=== PATIENT | female | born 1980 | race African-American/Black ===

== ENCOUNTER 2017-03-03 01:59 | Emergency (ER) | payer OTHER ==
--- NOTE | ~2017-03-03 | CT71 ---
[facility] A Service of [facility] RADIOLOGY TEXT RESULTS PATIENT: ABRAHAN GLOVER LOCATION: JOSE : [birth year] UNIT #: [id number] AGE: [address]: Demario Rodriguez MD SEX: F ORDER DR: [id number] [facility] [address] [place], [place] [address] [id number] E MR#: [id number] Acc #: [id number] NAME: ABRAHAN GLOVER : 1980 SEX: F STUDY DATE/TIME: 03/03/2017 1:59 UNIT: JOSE ROOM: STUDY DESCRIPTION: CT Head Wo Contrast Attending Physician: Demario Rodriguez M.D. Ordering Physician: Demario Rodriguez M.D. Primary Care Physician: No Primary Care Physician MEDICAL IMAGING REPORT This report is preliminary unless electronic signature is present EXAM Noncontrast head CT. HISTORY Left side of head hurts, nausea; onset today. TECHNIQUE This CT exam was performed with one or more of the following radiation dose reduction techniques: automatic exposure control, adjustment of mA and/or kV according to patient size, and iterative reconstruction. FINDINGS Axial noncontrast imaging of the brain demonstrates the brain parenchyma to be normal. No mass, mass effect or midline shift. No hemorrhage or abnormal extraaxial fluid collections. Ventricles, sulci and basilar cisterns appear normal. The bony calvaria, skull base, mastoids, sinuses unremarkable. IMPRESSION Negative noncontrast head CT. Dictated by... Wendy Castro M.D. THIS IS AN ELECTRONICALLY VERIFIED REPORT Wendy Castro M.D. at 03/03/2017 10:04 PM EL/devora TD: 03/03/2017 11:49 JOB #: [id number] [facility] A Service [facility] RADIOLOGY TEXT RESULTS PATIENT: ABRAHAN GLOVER LOCATION: JOSE : [birth year] UNIT #: [id number] AGE: [address]: Demario Rodriguez MD SEX: F ORDER DR: MEDICAL IMAGING REPORT Page 1 of 1 COPY
[2017-03-03 02:09] LABS: BASOPHIL# 0.1 X10e3 (0-0.3); DIFF IND NO; EOSINOPHIL# 0.2 X10e3 (0-0.7); EOSINOPHIL% 1.7 % (0.0-7.0); HEMOGLOBIN 12.7 gm/dL (12.0-16.0); LYMPHOCYTE# 2.6 X10e3 (1.0-3.5); LYMPHOCYTE% 25.9 % (17.0-45.0); MEAN CELL VOLUME 71.1 FL (83-96); MEAN CORPUSCULAR HEMOGLOBIN 22.1 PG (28-34); MEAN CORPUSCULAR HGB CONC 31.1 g/dL (30-36); MEAN PLATELET VOLUME 9.3 FL (6.5-11.5); MONOCYTE# 0.7 X10e3 (0-1.0); NEUTROPHIL# 6.6 X10e3 (1.5-7.1); NEUTROPHIL% 64.4 % (40-75); PLATELET COUNT 272 X10e3 (140-420); RED BLOOD COUNT 5.77 X10e (3.90-5.30); RED CELL DISTRIBUTION WIDTH 15.9 % (11.0-15.5); WHITE BLOOD COUNT 10.2 X10e3 (4.0-10.5)
[2017-03-03 02:32] LABS: BLOOD UREA NITROGEN 15 mg/dL (9-23); BUN/CREATININE RATIO 21.42; CALCIUM SERUM 8.9 mg/dL (8.4-10.2); CARBON DIOXIDE 24 mmol/L (22-31); CHLORIDE 102 mmol/L (100-111); CREATININE SERUM 0.7 mg/dL (0.6-1.4); GLOM FILT RATE Estimated 130.1 mL/min (>60); GLUCOSE FASTING 101 mg/dL (70-110); POTASSIUM 3.7 mmol/L (3.5-5.1); SODIUM 135 mmol/L (135-145)
[2017-03-03 02:34] LABS: ALCOHOL BLOOD <5 mg/dL (0)
== END 2017-03-03 02:56 | disposition home or self-care (01) ==
LOC: CED 01:59
PROVIDERS: Emergency Medicine
DX: G43.909 Migraine, unspecified, not intractable, without status migrainosus (principal)
CPT/HCPCS: 36415; 70450; 80048; 84703; 85025; 96361; 96374; 96375; 99284; G0480; J1885; J2405